=== PATIENT | female | born 1970 | race Caucasian/White ===

== ENCOUNTER → 2025-04-25 07:52 | Outpatient (REF) | payer OTHER, SELFPAY | LOC: HWRAD 07:52 | PROVIDERS: ATTENDING PHYSICIAN Nurse Practitioner; FAMILY PHYSICIAN Nurse Practitioner Family | DX: M25.511 Pain in right shoulder (principal); M54.2 Cervicalgia | CPT/HCPCS: 72052; 73030 ==

== ENCOUNTER → 2025-04-26 06:39 | Outpatient (REF) | payer OTHER, SELFPAY | LOC: HWWDC 06:39 | PROVIDERS: ATTENDING PHYSICIAN Nurse Practitioner Family | DX: Z12.31 Encounter for screening mammogram for malignant neoplasm of breast (principal) | CPT/HCPCS: 77063; 77067 ==